=== PATIENT | male | born 1945 | race Two or more races ===

== ENCOUNTER 2024-05-03 17:51 | Inpatient (IN) | payer OTHER ==
[2024-05-03 19:03] VITALS: BMI 28.3
[2024-05-03] MEDS ORDERED: LIDOCAINE PATCH REMOVAL MC SCH (22:00)
[2024-05-03] MEDS ORDERED: NALOXONE (NARCAN) HCL 4 MG/0.1 ML SPRAY NS PRN (22:37)
[2024-05-03] MEDS ORDERED: ONDANSETRON *ODT* 4 MG TABLET SL PRN (22:37)
[2024-05-03] MEDS ORDERED: LOPERAMIDE HCL 2 MG CAPSULE PO PRN (22:37)
[2024-05-03] MEDS ORDERED: MAG HYDROX/AL HYDROX/SIMETH 30 ML UNIT-DOSE CUP PO PRN (22:37)
[2024-05-03] MEDS ORDERED: BENZONATATE 200 MG CAPSULE PO PRN (22:37)
[2024-05-03] MEDS ORDERED: BENZOCAINE/MENTHOL (CHLORASEPTIC ) LOZENGE MM PRN (22:37)
[2024-05-03] MEDS ORDERED: POLYETHYLENE GLYCOL (HEALTHYLAX) 3350 17 GM PACKET PO PRN (22:37)
[2024-05-03] MEDS ORDERED: ALBUTEROL SO4 0.083% IH SOL 2.5 MG/3 ML VIAL.NEB. NEB PRN (23:08)
[2024-05-03] MEDS ORDERED: BUDESONIDE/FORMETEROL FUMARATE 80/4.5 mcg INHALER IH SCH (23:30)
[2024-05-03] MEDS: METOPROLOL TARTRATE 25 MG TABLET (FP) PO SCH (23:42)
[2024-05-03] MEDS ORDERED: METOPROLOL TARTRATE 25 MG TABLET (FP) ONE (23:42)
[2024-05-04] MEDS: BUDESONIDE/FORMETEROL FUMARATE 80/4.5 mcg INHALER IH SCH (01:46)
[2024-05-04] MEDS: diazePAM 5 MG TABLET PO SCH (05:05)
[2024-05-04] MEDS: diazePAM 5 MG TABLET PO ONE ×2 (06:15→07:17)
[2024-05-04] MEDS: BRIMONIDINE TARTRATE 0.1% OPHTHALMIC 5 ML BOTTLE OU SCH (07:16)
[2024-05-04] MEDS: FUROSEMIDE 40 MG TABLET (FP) PO SCH (07:19)
[2024-05-04] MEDS: PRENATAL VITAMINS W/ FOLIC ACID TABLET (FP) PO SCH (10:47)
[2024-05-04] MEDS: LIDOCAINE 4% PATCH TP SCH (10:47)
[2024-05-04] MEDS: NIFEdipine E.R 60 MG TABLET PO SCH (10:47)
[2024-05-04] MEDS: PANTOPRAZOLE 20 MG TABLET PO SCH (10:47)
[2024-05-04] MEDS: CLOPIDOGREL BISULFATE 75 MG TABLET (FP) PO SCH (10:47)
[2024-05-04] MEDS ORDERED: LIDOCAINE 5% TOPICAL PATCH TP ONE (12:00)
[2024-05-04 13:41] LABS: HEMATOCRIT 41.7 % (35.4-49); HEMOGLOBIN 13.6 GM/dL (11.7-16.9); MCH 30.3 pg (25.7-33.7); MCHC 32.6 g/dl (32.0-35.9); MEAN CELL VOLUME 92.9 fl (80-96); MEAN PLT VOLUME 9.1 fl (7.5-11.1); PLATELET COUNT 90 10^3/uL (134-434); POTASSIUM 3.9 mmol/L (3.5-5.1); RBC 4.49 M/mm3 (4.00-5.60); RDW 14.6 % (11.9-15.9); WHITE BLOOD COUNT 2.7 K/mm3 (4.0-10.0)
[2024-05-04 13:43] LABS: CALCIUM 7.9 mg/dL (8.5-10.1)
[2024-05-04 13:44] LABS: ALBUMIN 2.6 g/dl (3.4-5.0)
[2024-05-04 13:46] LABS: BLOOD UREA NITROGEN 14.4 mg/dL (7-18); CREATININE 1.1 mg/dL (0.55-1.3)
[2024-05-04 13:48] LABS: BILIRUBIN,TOTAL 1.8 mg/dL (0.2-1); TOT PROT 6.6 g/dl (6.4-8.2)
[2024-05-04] MEDS: LIDOCAINE 5% TOPICAL PATCH TP ONE (16:03)
[2024-05-04] MEDS: ACETAMINOPHEN 325 MG TABLET (FP) PO PRN (17:42)
[2024-05-04] MEDS: RIVAROXABAN 15 MG TABLET PO SCH ×2 (19:25→20:18)
[2024-05-04] MEDS: ATORVASTATIN CA 40 MG TABLET (FP) PO SCH (22:33)
[2024-05-04] MEDS: MELATONIN 5 MG TABLETS PO SCH (22:33)
[2024-05-04] MEDS: THIAMINE 100 MG TABLET PO SCH (22:33)
[2024-05-04] MEDS: MONTELUKAST NA 10 MG TABLET PO SCH (22:34)
[2024-05-04] MEDS: TAMSULOSIN HCL 0.4 MG CAP PO SCH (22:34)
[2024-05-04] MEDS: LIDOCAINE PATCH REMOVAL MC SCH ×2 (22:36)
[2024-05-05] MEDS: diazePAM 5 MG TABLET PO SCH (06:10)
[2024-05-05] MEDS: LIDOCAINE 4% PATCH TP SCH (10:09)
[2024-05-05] MEDS: ALBUTEROL SO4 HFA INHALER IH PRN (11:17)
[2024-05-05] MEDS: MAGNESIUM HYDROX 2400MG/30ML ORAL SUSPENSION 30 ML CUP PO PRN (11:48)
[2024-05-05] MEDS ORDERED: LACTULOSE 20 GM/30 ML UDC (FOR ORAL USE ONLY) PO PRN (12:00)
[2024-05-05] MEDS: METHYL SALICYLATE/MENTHOL 30 GM TUBE TP PRN (17:37)
[2024-05-05] MEDS: guaiFENesin 600 MG TABLET.ER (FP) PO PRN (17:39)
[2024-05-06] MEDS: diazePAM 5 MG TABLET PO SCH (05:57)
[2024-05-07] MEDS: LACTULOSE 20 GM/30 ML UDC (FOR ORAL USE ONLY) PO SCH (10:01)
[2024-05-07] MEDS: ACAMPROSATE CALCIUM 333 MG TABLET.DR PO SCH (13:45)
[2024-05-09 06:22] VITALS: TEMP 97.8
[2024-05-09 09:20] VITALS: BP 133/78; PULSE 77; RESP 18
== END 2024-05-09 11:32 | disposition home or self-care (01) | DRG 897 ==
LOC: YASAS 17:51 → Y6N 23:12
PROVIDERS: ADMIT Allergy & Immunology; ATTEND Allergy & Immunology
PROC: HZ2ZZZZ Detoxification Services for Substance Abuse Treatment (ICD-10-PCS; principal; 2024-05-02)
DX: F10.230 Alcohol dependence with withdrawal, uncomplicated (principal); F32.A Depression, unspecified; I25.10 Atherosclerotic heart disease of native coronary artery without angina pectoris; I10 Essential (primary) hypertension; I48.91 Unspecified atrial fibrillation; Z95.5 Presence of coronary angioplasty implant and graft; E78.00 Pure hypercholesterolemia, unspecified; J30.89 Other allergic rhinitis; N40.0 Benign prostatic hyperplasia without lower urinary tract symptoms; R73.9 Hyperglycemia, unspecified; Z20.2 Contact with and (suspected) exposure to infections with a predominantly sexual mode of transmission; R26.89 Other abnormalities of gait and mobility; Z86.718 Personal history of other venous thrombosis and embolism; Z79.01 Long term (current) use of anticoagulants; Z79.02 Long term (current) use of antithrombotics/antiplatelets; Z99.89 Dependence on other enabling machines and devices
CPT/HCPCS: 36415; 80053; 80305; 80307; 82140; 82962; 85027; 86593; 86780; 93005; 93010